=== PATIENT | female | born 1940 | race Caucasian/White ===

== ENCOUNTER 2017-05-04 15:50 | Observation (INO) | payer OTHER ==
[~2017-05-04] VITALS: Ht 149.9 cm; Wt 53.6 kg
[2017-05-04 17:29] VITALS: PULSE 80
[2017-05-04] MEDS ORDERED: PIOG15TA21 PO (17:37)
[2017-05-04] MEDS ORDERED: LABE100T3 PO (17:37)
[2017-05-04] MEDS ORDERED: APIX2.5T PO (17:37)
[2017-05-04] MEDS ORDERED: ATOR40TA68 PO (17:37)
[2017-05-04 17:39] VITALS: Ht 149.9 cm; Wt 53.6 kg
[2017-05-04 18:07] VITALS: BP 149/69; PULSE 85; RESP 18
[2017-05-04] MEDS ORDERED: NACL 0.9% 3 ML SYG IV SCH (19:30)
[2017-05-04] MEDS ORDERED: HYDROCODONE/APAP (5/325) TAB PO PRN (19:30)
[2017-05-04 19:33] LABS: BASOPHILS % 0.3 % (0.0-2.0); EOSINOPHILS # 0.1 10^3/ul (0.0-0.5); EOSINOPHILS % 1.2 % (0.0-7.0); HEMATOCRIT 34.5 % (37.0-47.0); HEMOGLOBIN 11.1 g/dl (12.0-16.0); LYMPHOCYTES # 1.6 10^3/ul (0.8-2.9); MEAN CORPUSCULAR HEMOGLOBIN 28.3 pg (29.0-33.0); MEAN CORPUSCULAR HGB CONC 32.2 g/dl (32.0-37.0); MEAN PLATELET VOLUME 9.6 fl (7.4-10.4); MONOCYTE # 0.4 10^3/ul (0.3-0.9); MONOCYTES % 6.4 % (0.0-11.0); NEUTROPHIL # 3.9 10^3/ul (1.6-7.5); NEUTROPHILS % 64.8 % (39.0-77.0); PLATELET COUNT 219 10^3/UL (140-415); RED BLOOD COUNT 3.92 10^6/ul (4.20-5.40); RED CELL DISTRIBUTION WIDTH 12.5 % (11.5-14.5)
--- NOTE | 2017-05-04 19:41 | HP ---
Date/Time of Note Date/Time of Note DATE: 05/04/17 TIME: 19:34 Assessment/Plan VTE Prophylaxis VTE Prophylaxis Intervention: other Lines/Catheters IV Catheter Type (from Nrs): Saline Lock Assessment/Plan Chief Complaint/Hosp Course This is a 77 year old female with a history of hypertension, paroxysmal atrial fibrillation, and diabetes II who presents with presyncope and hypertensive emergency Presyncope: - From patients description of the event it is almost certainly a vasovagal vs orthostatic presyncope precipitated by kneeling then standing rapidly, this is in the setting of beta joyce use - No further workup is required given normal EKG and negative troponin at [place] Hypertensive emergency: - Patient's BP has already gone from 220 to 140 this afternoon, so we will not give any more anthypertensives at this time - BP regimen can be slowly reinstated tomorrow - She is on labetalol 50 mg daily at home and had previously been on amlodipine and lisinopirl, but her doctor told her to stop these because of her creatinine PAUL: - Per [place], her creatinine was 0.8 a few months ago so it seems the 1.2 is an acute elevation - Hold meds for now, recheck and see baseline Paroxsymal Atrial Fibrillation: - Continue Eliquis DMII: - Continue Actos for now as sugars not elevated enough to warrant insulin at this time Hima can be discharged tomorrow if BP is reasonable and she is feeling ok Problems: HPI/ROS Admit Date/Time Admit Date/Time May 04, 2017 at 16:56 Hx of Present Illness 77 yo female with a history of hypertension, DMII, and paroxysmal atrial fibrillation She was transferred from [facility] for evaluation of presyncope and severe hypertension Patient in [facility] until today. She was in [facility] kneeling down. Then tried to stand and became very lightheaded and weak, felt that she would faint. Staff from the [facility] took her BP there and it was very elevated so she was brought to [place]. At [place], BP was 220s/80s. She complained of headache at this time. She was given numerous rounds of IV labetalol and hydralazine. BP came down to 170s systolic and here is down to 140s on arrival. Head CT there unremarkable. Labs notable for creatinine to 1.2 which is slightly elevated from her baseline. Currently feels well. A bit woozy with standing. PMH/Family/Social Past Medical History Medical History: hypertension Past Surgical History Past Surgical Hx: no surgical history Family History Significant Family History: no pertinent family hx Social History Alcohol Use: none Smoking Status: Never smoker Drug Use: none Exam/Review of Systems Vital Signs Vitals Vital Signs Date Time Temp Pulse Resp B/P Pulse Ox O2 Delivery O2 Flow Rate FiO2 05/04/17 18:07 98.6 85 18 149/69 100 Room Air Exam Constitutional: alert, oriented, well developed Psych: nl mood/affect, no complaints Head: atraumatic, normocephalic Eyes: EOMI, PERRL, nl conjunctiva, nl lids, nl sclera ENMT: nl external ears & nose, nl lips & teeth, nl nasal mucosa & septum Neck: non-tender, supple Respiratory: clear to auscultation, normal air movement Cardiovascular: nl pulses, regular rate and rhythm Gastrointestinal: nl liver, spleen, non-tender, soft Musculoskeletal: nl extremities to inspection Extremities: normal pulses Neurological: RN ALLERGY II-XII intact, nl mental status, nl speech, nl strength Skin: nl turgor, No rash or lesions Lymph: nl lymph nodes Medications Medications Current Medications Acetaminophen/ Hydrocodone Bitart (Jarrell (5/325)) 2 tab Q6H PRN PO SEVERE PAIN LEVEL 7-10; Start 05/04/17 at 19:30 Enoxaparin Sodium (Lovenox) 30 mg DAILY SC ; Start 05/05/17 at 09:00 LION LEI MD May 04, 2017 19:41
[2017-05-04 19:58] LABS: ALBUMIN 3.9 g/dl (3.3-4.9); ALBUMIN/GLOBULIN RATIO 1.11; BILIRUBIN,INDIRECT 0.4 mg/dl (0-1.1); BILIRUBIN,TOTAL 0.4 mg/dl (0.2-1.3); CALCIUM 9.5 mg/dl (8.4-10.2); CREATININE 0.97 mg/dl (0.44-1.00); POTASSIUM 4.6 mmol/L (3.5-5.1); TOTAL PROTEIN 7.4 g/dl (6.1-8.1)
[2017-05-04 20:16] VITALS: BP 175/79; RESP 19
[2017-05-04 20:19] VITALS: PULSE 77
[2017-05-04 20:54] VITALS: BP 161/71; PULSE 86; RESP 19
[2017-05-04] MEDS: APIXABAN 5 MG TABLET PO SCH (20:56)
[2017-05-04] MEDS: ATORVASTATIN 10 MG TAB PO SCH (20:56)
[2017-05-05] VITALS (12 sets, daily range): BP systolic 135–187; BP diastolic 64–90; PULSE 77–122; RESP 18–20
[2017-05-05 08:29] LABS: BASOPHILS % 0.5 % (0.0-2.0); EOSINOPHILS # 0.1 10^3/ul (0.0-0.5); EOSINOPHILS % 1.7 % (0.0-7.0); HEMATOCRIT 34.8 % (37.0-47.0); HEMOGLOBIN 11.1 g/dl (12.0-16.0); LYMPHOCYTES # 1.8 10^3/ul (0.8-2.9); LYMPHOCYTES % 27.7 % (15.0-51.0); MEAN CORPUSCULAR HEMOGLOBIN 27.9 pg (29.0-33.0); MEAN CORPUSCULAR HGB CONC 31.9 g/dl (32.0-37.0); MEAN CORPUSCULAR VOLUME 87.4 fl (82.0-101.0); MONOCYTE # 0.6 10^3/ul (0.3-0.9); MONOCYTES % 9.1 % (0.0-11.0); NEUTROPHIL # 3.9 10^3/ul (1.6-7.5); NEUTROPHILS % 60.7 % (39.0-77.0); PLATELET COUNT 226 10^3/UL (140-415); RED BLOOD COUNT 3.98 10^6/ul (4.20-5.40); RED CELL DISTRIBUTION WIDTH 12.6 % (11.5-14.5); WHITE BLOOD COUNT 6.4 10^3/ul (4.8-10.8)
[2017-05-05] MEDS: PIOGLITAZONE 15 MG TAB PO SCH (08:53)
[2017-05-05] MEDS: APIXABAN 5 MG TABLET PO SCH ×2 (08:54→21:11)
[2017-05-05] MEDS ORDERED: hydrALAzine 20 MG INJ IV PRN (09:00)
[2017-05-05] MEDS ORDERED: ENOXAPARIN 30 MG/0.3 ML SYG SC SCH (09:00)
[2017-05-05 09:18] LABS: ALBUMIN 3.7 g/dl (3.3-4.9); ALBUMIN/GLOBULIN RATIO 1.08; BILIRUBIN,INDIRECT 0.5 mg/dl (0-1.1); BILIRUBIN,TOTAL 0.5 mg/dl (0.2-1.3); CALCIUM 9.7 mg/dl (8.4-10.2); CREATININE 1.13 mg/dl (0.44-1.00); POTASSIUM 3.7 mmol/L (3.5-5.1); TOTAL PROTEIN 7.1 g/dl (6.1-8.1)
[2017-05-05] MEDS: AMLODIPINE 5 MG TAB PO SCH (12:35)
[2017-05-05] MEDS ORDERED: AMLO-145 PO (15:07)
--- NOTE | 2017-05-05 15:07 | PDOCDIS ---
Discharge Instructions CONDITION Patient Condition: Good HOME CARE INSTRUCTIONS: Diet Instructions: Regular ACTIVITY: Activity Restrictions: No Restrictions FOLLOW UP/APPOINTMENTS Follow-up Plan FOLLOW UP WITH YOUR PRIMARY CARE PHYSICIAN IN 1-2 WEEKS DANIS TAFOYA May 05, 2017 15:07
--- NOTE | 2017-05-05 15:16 | DS ---
Date/Time of Note Date/Time of Note DATE: 05/05/17 TIME: 15:08 Discharge Summary Admission/Discharge Info Admit Date/Time May 04, 2017 at 16:56 Discharge Date/Time May 05, 2017 Discharge Diagnosis 1. Presyncope secondary to labile BP with orthostatic hypotension - From patients description of the event it is almost certainly a vasovagal vs orthostatic presyncope precipitated by kneeling then standing rapidly, - No further workup is required given normal EKG and negative troponin at [place], patient also had recent heart cath that showed no significant disease and no CHF 2. Hypertensive emergency -Patient has had labile BP for many years, will continue home labetalol and will prescribe Norvasc 5 mg daily - She is on labetalol 50 mg daily at home and had previously been on amlodipine and lisinopril, lisinopril was held secondary to rising creatinine 3. PAUL-mild elevation - Per [place], her creatinine was 0.8 a few months ago so it seems the 1.2 is an acute elevation -Follow up with PCP 4. Paroxsymal Atrial Fibrillation: - Continue Eliquis 5. DMII: - Continue home meds Patient Condition: Good Hospital Course Patient is a 77 yo female with a history of hypertension, DMII, and paroxysmal atrial fibrillation. Patient was transferred from [facility] for evaluation of presyncope and severe hypertension. At [place], BP was 220s/ 80s. She complained of headache and was given numerous rounds of IV labetalol and hydralazine. CT head was unremarkable. Her pressures did improve, patient used to take Norvasc 5 mg daily and lisinopril but these medications were held secondary to a rising creatinine. Patient was resumed back on Norvasc 5 and BP did stabilize. Was felt that patient should continue her home labetalol will be given a new prescription for Norvasc 5 upon DC. The day of discharge patient 's vitals, labs physical exam are stable, she had no acute complaints and questions were answered. Patient does have good follow-up with her PCP. Home Meds Active Scripts Amlodipine Besylate* (Amlodipine Besylate*) 5 Mg Tablet, 5 MG PO DAILY, #60 TAB Prov:DANIS TAFOYA 05/05/17 Reported Medications Apixaban* (Eliquis*) 2.5 Mg Tablet, 2.5 MG PO BID, TAB 05/04/17 Labetalol Hcl* (Labetalol Hcl*) 100 Mg Tablet, 50 MG PO BID, TAB 05/04/17 Pioglitazone Hcl* (Pioglitazone Hcl*) 15 Mg Tablet, 15 MG PO DAILY, TAB 05/04/17 Atorvastatin* (Atorvastatin*) 40 Mg Tablet, 10 MG PO QHS, #30 TAB 05/04/17 Follow-up Plan FOLLOW UP WITH YOUR PRIMARY CARE PHYSICIAN IN 1-2 WEEKS Primary Care Provider [facility] Time spent on discharge: > 30 minutes DANIS TAFOYA May 05, 2017 15:16
[2017-05-05] MEDS ORDERED: morphine 2 MG INJ IV STA (16:27)
[2017-05-05] MEDS ORDERED: DILTIAZEM 25 MG INJ IV ONE (16:30)
--- NOTE | 2017-05-05 18:17 | RADRPT ---
Echocardiogram Report Patient Name: BRANDON KURTZ Gender: Female Date: 1940 Study Date: 05-May-2017 Grinder Hardboard: Shoaib Delgado [facility] Location: 55[address] Ref. Physician: DANIS TAFOYA Quality: Adequate Procedures: Transthoracic echocardiogram with complete 2D, M-Mode, and doppler examination. Indications: SVT. 2D/M Mode Doppler Measurement Value Normal Ranges Measurement Value Normal Ranges LVIDd 2D 2.6 3.5 - 5.6 cm AV Mean Claudio 1.6 m/sec LVIDs 2D 1.6 2.1 - 4.1 cm AV Mean PG 10.5 mmHg LVPWd 2D 1.4 0.6 - 1.1 cm AV Peak Claudio 1.9 m/sec IVSd 2D 1.5 0.6 - 1.1 cm AV Peak PG 14.2 mmHg AoR Diam 2D 2.4 2.0 - 3.7 cm AV VTI 32.8 cm EDV 2D 24.1 cm3 LVOT Peak Claudio 1.8 m/sec ESV 2D 4.0 cm3 LVOT Peak PG 12.8 mmHg LA Dimen 2D 3.2 2.3 - 4.0 cm TR Peak Claudio 2.8 m/sec TR Peak PG 30.4 mmHg RVSP 40.0 mmHg Findings Left Ventricle: Hyperdynamic left ventricular systolic function. Normal left ventricular cavity size. Moderate concentric left ventricular hypertrophy. Ejection fraction is visually estimated at 70 %. Right Ventricle: Normal right ventricular size. Hyperdynamic right ventricular systolic function. Left Atrium: The left atrium is normal in size. Right Atrium: The right atrium is normal in size. Mitral Valve: Mild mitral leaflet calcification. Mild mitral annular calcification. Trace mitral regurgitation. Aortic Valve: Normal appearance of the aortic valve. No significant aortic stenosis or insufficiency. Tricuspid Valve: Normal appearance of the tricuspid valve. Estimated peak PA systolic pressure 40 mmHg. There is mild tricuspid regurgitation. Pulmonic Valve: Pulmonic valve not well visualized. There is trace pulmonic regurgitation. Pericardium: There is an anterior echo free space consistent with epicardial fat pad. Aorta: Normal aortic root. IVC: Normal size and normal respiratory collapse consistent with normal right atrial pressure. Conclusions 1.Hyperdynamic left ventricular systolic function. Normal left ventricular cavity size. Moderate concentric left ventricular hypertrophy. Ejection fraction is visually estimated at 70 %. 2.The left atrium is normal in size. 3.Mild mitral leaflet calcification. Mild mitral annular calcification. Trace mitral regurgitation. 4.Normal appearance of the aortic valve. No significant aortic stenosis or insufficiency. 5.Normal appearance of the tricuspid valve. Estimated peak PA systolic pressure 40 mmHg. There is mild tricuspid regurgitation. Electronically Signed By: Darian Doherty 05-May-2017 18:16:33 -0800 Patient Name: BRANDON KURTZ Study Date: 05-May-2017 [id number]
--- NOTE | 2017-05-05 18:50 | CONS ---
Date/Time of Note Date/Time of Note DATE: 05/05/17 TIME: 18:44 Assessment/Plan Assessment/Plan Chief Complaint/Hosp Course 1. P-AFIB RVR 2. HTN 3. PRESYNCOPE 4. hx mild CAD: NO stenting needed per family report. Recommendations: I will start the patient on back on labetalol with increased dose of 200 mg p.o. twice daily. We will monitor in the telemetry overnight Echo was just done and reviewed personally Amlodipine will be continued with better blood pressure control Eliquis will be continued DC planning for tomorrow if remains stable Outpatient follow-up with her stone gluer Thank you for his referral. I will continue to follow along with you. ITALIA KEN MD [facility] Problems: Consultation Date/Type/Reason Admit Date/Time May 04, 2017 at 16:56 Date of Consultation: May 05, 2017 Type of Consultation: cardiology Reason for Consultation AFIB Referring Provider: DANIS QUEVEDO of Present Illness CC: presyncope HPI: Thank you for his referral. I will inform the patient discussion with her daughter review of the chart discussion with Dr. Quevedo. This is a pleasant 77-year-old [place] female with history of paroxysmal atrial fibrillation who is being followed by , who was transferred from [facility] after a presyncopal episode. Patient said that she was in the discharge med sheet kneeling down when she felt dizzy and lightheaded. Paramedics were called he was noted to be severely hypertensive patient was brought to the emergency room. Patient was transferred to [facility] from [facility] due to insurance reasons. Patient denies any chest pain or pressure. He denies any palpitations during this episode. Today however she was noted to go into atrial fibrillation with rapid ventricular response and during that time she also felt palpitation. Patient is already on Eliquis and said that she has had atrial fibrillation before has been followed by Dr Mathias. These episodes are usually rare though. She denies any bleeding to me. She has not been drinking much lately. According to the patient and her daughter patient blood pressure has always been "very high". meds reviewed social HX; Non smoker. Family history: Patient's father with coronary artery disease PMH HTN PAFIB Surgical history: Patient reports that he has had an angiogram done about a year ago in which hospital. At that time no stenting was needed ROS; as ABOVE ONLY Psychological: nl mood/affect, no complaints Past Medical History Medical History: hypertension Past Surgical History Past Surgical Hx: no surgical history Social History Alcohol Use: none Smoking Status: Never smoker Drug Use: none Exam/Review of Systems Vital Signs Vitals Vital Signs Date Time Temp Pulse Resp B/P Pulse Ox O2 Delivery O2 Flow Rate FiO2 05/05/17 16:00 122 05/05/17 15:41 98.6 18 135/64 99 05/04/17 20:54 Room Air Intake and Output 05/04/17 05/04/17 05/05/17 15:00 23:00 07:00 Intake Total 360 ml Balance 360 ml Exam General: no acute distress HEENT: NC/AT. pupils are equal. round. NECK: NO JVD. no stridor. CV: RRR. systolic murmur; no gallop or rubs. PULM: no wheezing or rhonchi. GI: SOFT, NT, ND, no rebound or guarding Extremity: trace B/L LE edema. no clubbing. neuro: awake and alert, OX3. Psych: calm and pleasant rectal: deferred ECG NSR ECHO REVIEWED. Results Result Diagram: 05/05/17 0741 05/05/17 0741 Results 24 hrs Laboratory Tests Test 05/04/17 19:23 05/05/17 07:41 White Blood Count 6.0 6.4 Red Blood Count 3.92 L 3.98 L Hemoglobin 11.1 L 11.1 L Hematocrit 34.5 L 34.8 L Mean Corpuscular Volume 88.0 87.4 Mean Corpuscular Hemoglobin 28.3 L 27.9 L Mean Corpuscular Hemoglobin Concent 32.2 31.9 L Red Cell Distribution Width 12.5 12.6 Platelet Count 219 226 Mean Platelet Volume 9.6 10.0 Neutrophils % 64.8 60.7 Lymphocytes % 27.0 27.7 Monocytes % 6.4 9.1 Eosinophils % 1.2 1.7 Basophils % 0.3 0.5 Nucleated Red Blood Cells % 0.0 0.0 Neutrophils # 3.9 3.9 Lymphocytes # 1.6 1.8 Monocytes # 0.4 0.6 Eosinophils # 0.1 0.1 Basophils # 0.0 0.0 Nucleated Red Blood Cells # 0.0 0.0 Sodium Level 141 143 Potassium Level 4.6 3.7 Chloride Level 107 108 Carbon Dioxide Level 26 27 Anion Gap 13 12 Blood Urea Nitrogen 15 16 Creatinine 0.97 1.13 H Glucose Level 101 94 Calcium Level 9.5 9.7 Total Bilirubin 0.4 0.5 Direct Bilirubin 0.00 0.00 Indirect Bilirubin 0.4 0.5 Aspartate Amino Transf (AST/SGOT) 26 23 Alanine Aminotransferase (ALT/SGPT) 26 25 Alkaline Phosphatase 63 65 Total Protein 7.4 7.1 Albumin 3.9 3.7 Globulin 3.50 H 3.40 H Albumin/Globulin Ratio 1.11 1.08 Medications Medications Current Medications Acetaminophen/ Hydrocodone Bitart (Morrison (5/325)) 2 tab Q6H PRN PO SEVERE PAIN LEVEL 7-10; Start 05/04/17 at 19:30 Apixaban (Eliquis) 2.5 mg BID PO Last administered on 05/05/17 08:54; Admin Dose 2.5 MG; Start 05/04/17 at 21:00 Atorvastatin Calcium (Lipitor) 10 mg QHS PO Last administered on 05/04/17 20: 56; Admin Dose 10 MG; Start 05/04/17 at 21:00 Pioglitazone HCl (Actos) 15 mg DAILY PO Last administered on 05/05/17 08:53; Admin Dose 15 MG; Start 05/05/17 at 09:00 Hydralazine HCl (Apresoline) 10 mg Q6H PRN IV For SBP above 160 Last administered on 05/05/17 08:54; Admin Dose 10 MG; Start 05/05/17 at 09:00 Amlodipine Besylate (Norvasc) 5 mg DAILY PO Last administered on 05/05/17 12: 35; Admin Dose 5 MG; Start 05/05/17 at 12:00 ITALIA KEN MD May 05, 2017 18:50
[2017-05-05] MEDS ORDERED: POTASSIUM CHLORIDE (SR) 8 MEQ CAP PO ONE (20:00)
[2017-05-05] MEDS: ATORVASTATIN 10 MG TAB PO SCH (21:12)
[2017-05-05] MEDS: LABETALOL 200 MG TAB PO SCH (21:13)
[2017-05-06] VITALS: PULSE 75
[2017-05-06 01:52] VITALS: BP 145/74; RESP 16
[2017-05-06 04:00] VITALS: PULSE 72
[2017-05-06 04:49] VITALS: BP 117/61; RESP 16
[2017-05-06 08:11] VITALS: PULSE 74
[2017-05-06] MEDS: APIXABAN 5 MG TABLET PO SCH (08:29)
[2017-05-06] MEDS: PIOGLITAZONE 15 MG TAB PO SCH (08:29)
[2017-05-06] MEDS: AMLODIPINE 5 MG TAB PO SCH (08:29)
[2017-05-06] MEDS: LABETALOL 200 MG TAB PO SCH (08:29)
[2017-05-06 09:49] LABS: BASOPHILS % 0.4 % (0.0-2.0); EOSINOPHILS # 0.1 10^3/ul (0.0-0.5); HEMATOCRIT 32.8 % (37.0-47.0); HEMOGLOBIN 10.5 g/dl (12.0-16.0); LYMPHOCYTES # 1.9 10^3/ul (0.8-2.9); LYMPHOCYTES % 34.5 % (15.0-51.0); MEAN CORPUSCULAR HEMOGLOBIN 28.1 pg (29.0-33.0); MEAN CORPUSCULAR VOLUME 87.7 fl (82.0-101.0); MEAN PLATELET VOLUME 9.8 fl (7.4-10.4); MONOCYTE # 0.4 10^3/ul (0.3-0.9); MONOCYTES % 7.9 % (0.0-11.0); NEUTROPHIL # 3.1 10^3/ul (1.6-7.5); PLATELET COUNT 222 10^3/UL (140-415); RED BLOOD COUNT 3.74 10^6/ul (4.20-5.40); RED CELL DISTRIBUTION WIDTH 12.6 % (11.5-14.5); WHITE BLOOD COUNT 5.6 10^3/ul (4.8-10.8)
[2017-05-06 10:22] LABS: ALBUMIN 3.6 g/dl (3.3-4.9); ALBUMIN/GLOBULIN RATIO 1.09; BILIRUBIN,INDIRECT 0.5 mg/dl (0-1.1); BILIRUBIN,TOTAL 0.5 mg/dl (0.2-1.3); CALCIUM 9.4 mg/dl (8.4-10.2); CREATININE 1.13 mg/dl (0.44-1.00); MAGNESIUM 1.7 mg/dl (1.7-2.5); POTASSIUM 3.7 mmol/L (3.5-5.1); TOTAL PROTEIN 6.9 g/dl (6.1-8.1)
[2017-05-06] MEDS ORDERED: LABE200T25 PO (10:48)
[2017-05-06 12:44] VITALS: BP 106/57; PULSE 74; RESP 18
--- NOTE | 2017-05-07 18:16 | DS ---
Date/Time of Note Date/Time of Note DATE: 05/07/17 TIME: 18:11 Discharge Summary Admission/Discharge Info Admit Date/Time May 04, 2017 at 16:56 Discharge Date/Time May 06, 2017 at 12:43 Discharge Diagnosis 1. Presyncope secondary to labile BP with orthostatic hypotension - From patients description of the event it is almost certainly a vasovagal vs orthostatic presyncope precipitated by kneeling then standing rapidly, - No further workup is required given normal EKG and negative troponin at [place], patient also had recent heart cath that showed no significant disease and no CHF 2. Hypertensive emergency -Patient has had labile BP for many years -Patient discharged with labetalol 200 twice daily as well as Norvasc 5 mg daily - She is on labetalol 50 mg daily at home which she is to discontinue and had previously been on amlodipine and lisinopril, lisinopril was held secondary to rising creatinine 3. PAUL-mild elevation - Per [place], her creatinine was 0.8 a few months ago so it seems the 1.2 is an acute elevation -Follow up with PCP 4. Paroxsymal Atrial Fibrillation: - Continue Eliquis -Patient did have an episode of tachycardia which resolved -Cardiology consultation appreciated recommendation is to increase labetalol to 200 twice daily 5. DMII: - Continue home meds Patient Condition: Good Hospital Course Patient is a 77 yo female with a history of hypertension, DMII, and paroxysmal atrial fibrillation. Patient was transferred from [facility] for evaluation of presyncope and severe hypertension. At [place], BP was 220s/ 80s. She complained of headache and was given numerous rounds of IV labetalol and hydralazine. CT head was unremarkable. Her pressures did improve, patient used to take Norvasc 5 mg daily and lisinopril but these medications were held secondary to a rising creatinine. Patient was resumed back on Norvasc 5 and BP did stabilize. Patient did have an episode of A. fib with RVR prior to being discharge and discharge was held, patient was seen by cardiology and labetalol was increased to 200 mg twice daily. Following day patient's blood pressure and heart rate were stable and was felt that patient should be discharged with labetalol 200 mg twice daily and she is to stop her home labetalol 50 mg twice daily, patient also discharged with Norvasc 5 milligrams. On the day of discharge patient's vitals, labs physical exam are stable, she had no acute complaints and questions were answered. Patient does have good follow-up with her PCP. Home Meds Active Scripts Labetalol Hcl* (Labetalol Hcl*) 200 Mg Tablet, 200 MG PO BID, #60 TAB Prov:DANIS TAFOYA 05/06/17 Amlodipine Besylate* (Amlodipine Besylate*) 5 Mg Tablet, 5 MG PO DAILY, #60 TAB Prov:DANIS TAFOYA 05/05/17 Reported Medications Apixaban* (Eliquis*) 2.5 Mg Tablet, 2.5 MG PO BID, TAB 05/04/17 Pioglitazone Hcl* (Pioglitazone Hcl*) 15 Mg Tablet, 15 MG PO DAILY, TAB 05/04/17 Atorvastatin* (Atorvastatin*) 40 Mg Tablet, 10 MG PO QHS, #30 TAB 05/04/17 Follow-up Plan FOLLOW UP WITH YOUR PRIMARY CARE PHYSICIAN IN 1-2 WEEKS Primary Care Provider [facility] Time spent on discharge: > 30 minutes DANIS TAFOYA May 07, 2017 18:16
== END 2017-05-06 12:43 | disposition home or self-care (01) ==
LOC: INTOOBSV 16:56 → MS4 16:56
PROVIDERS: ADMIT Internal Medicine; ATTEND Internal Medicine
DX: R55 Syncope and collapse (principal); I10 Essential (primary) hypertension; N17.9 Acute kidney failure, unspecified; E11.9 Type 2 diabetes mellitus without complications; Z79.84 Long term (current) use of oral hypoglycemic drugs; I48.0 Paroxysmal atrial fibrillation; Z79.01 Long term (current) use of anticoagulants
CPT/HCPCS: 80053; 83735; 85025; 93005; 93306; J0360; J2270; Z7500; Z7610; G0378

== ENCOUNTER 2018-09-11 13:36 | Day surgery (SDC) | payer OTHER ==
[~2018-09-11] VITALS: Ht 139.7 cm; Wt 55.4 kg
[2018-09-11] VITALS (18 sets, daily range): BP systolic 85–171; BP diastolic 53–78; PULSE 78–118; RESP 16–29; Ht 139.7 cm; Wt 55.4 kg
[~2018-09-11 13:36] MED LIST: AMLO-145 PO; APIX2.5T PO; ATOR40TA68 PO; LABE200T25 PO; PIOG15TA67 PO
[2018-09-11] MEDS ORDERED: FENTAnyl 50 MCG/ML VIAL ONE (16:10)
[2018-09-11] MEDS ORDERED: HEPARIN 1000 UNITS/NS (A-LINE) 1,000 ML ONE (16:10)
[2018-09-11] MEDS ORDERED: LIDOCAINE 1% (MDV) 20 ML INJ ONE (16:10)
[2018-09-11] MEDS ORDERED: MIDAZOLAM 1 MG/ML 2 ML INJ ONE (16:10)
[2018-09-11] MEDS ORDERED: IODIXANOL LOCM 100 ML BTL ONE (16:10)
[2018-09-11] MEDS ORDERED: HEPARIN 1000 UNITS/ML 10 ML INJ ONE (16:11)
[2018-09-11] MEDS ORDERED: VERAPAMIL 5 MG INJ ONE (16:12)
[2018-09-11] MEDS ORDERED: NITROGLYCERIN (IC) 100 MCG/ML INJ ONE (16:12)
[2018-09-11] MEDS ORDERED: SOD CHLORIDE 0.9% 1,000 ML IV SCH (16:58)
--- NOTE | 2018-09-11 17:59 | OPR ---
Date/Time of Note Date/Time of Note DATE: 09/11/18 TIME: 17:57 Operative Report Procedure Date: Sep 11, 2018 Preoperative Diagnosis Chest pain Postoperative Diagnosis No significant coronary artery disease Operation/Procedure Performed left heart catheterization Surgeon see signature line Barrel Raiser none Anesthesia Type: moderate sedation Estimated Blood Loss: minimal Transfusion none Specimen none Grafts/Implants none Complications none Pt Condition Post Procedure: stable Disposition: PACU Procedure Description DESCRIPTION OF PROCEDURE: The patient placed on color television console monitor, pulse oximetry and supplemental oxygen as necessary. The right wrist was prepped and draped in a sterile fashion and infiltrated with 1% lidocaine. Via the Seldinger technique, the right radial artery was accessed. A 5-Persian sheath was inserted and through this the right coronary catheter and left coronary catheter and pigtail were advanced into the right coronary artery and left coronary artery and the left ventricle. Placement confirmed by fluoroscopy and hemodynamics. CATHETERIZATION FINDINGS: 1. Left main: No significant disease. 2. LAD: Large caliber vessel with no significant disease. 3. Circumflex: Medium caliber vessel with no significant disease. 4. Obtuse marginal: Medium caliber vessel with no significant disease. 5. RCA: Large dominant vessel with no significant disease HEMODYNAMICS: LVEDP 10mmHg. No significant aortic valve gradient on pigtail pullback. COMPLICATIONS: None. FINAL RESULTS: No significant coronary artery disease RECOMMENDATIONS: Medical management. TOMER RIVAS Sep 11, 2018 17:59
== END 2018-09-11 18:57 | disposition home or self-care (01) ==
LOC: CCL 13:36 → SDS 13:36 → CCL 18:57
PROVIDERS: ATTEND Internal Medicine
DX: R07.9 Chest pain, unspecified (principal); R06.02 Shortness of breath; I48.91 Unspecified atrial fibrillation
CPT/HCPCS: 80048; 82962; 85025; 85610; 93458; C1887; J1644; J2250; J3010; Q9967; Z7610

== ENCOUNTER 2018-11-19 21:12 | Emergency (ER) | payer OTHER ==
[~2018-11-19] VITALS: Ht 147.3 cm; Wt 56.9 kg
[2018-11-19 21:44] VITALS: Ht 147.3 cm; Wt 56.9 kg
[2018-11-19] MEDS ORDERED: CEFTRIAXONE 1 GM/50 ML (PMX) 50 ML IVPB STA (23:37)
[2018-11-19] MEDS ORDERED: AZITHROMYCIN 500MG/NS (PMX) 250 ML IV STA (23:37)
[2018-11-19] MEDS ORDERED: SODIUM CHLORIDE 0.9% 1L BAG IV* STA (23:37)
[2018-11-20] MEDS ORDERED: ALBUTEROL 0.083% (NEB) 2.5 MG/3 ML AMP INH ONE
[2018-11-20] MEDS ORDERED: IPRATROPIUM (NEB) 0.5 MG/2.5 ML AMP INH ONE
[2018-11-20] MEDS ORDERED: AZIT250T PO (01:29)
[2018-11-20] MEDS ORDERED: AMOX500C2 PO (01:29)
[2018-11-20] MEDS ORDERED: ALBU18HF INHALATION (01:29)
--- NOTE | 2018-11-20 01:34 | ERD ---
ER Documentation Chief Complaint Chief Complaint sore throat, fever/body aches/cough x 2 days HPI This is a 78-year-old female who presents to the emergency room complaining of sore throat, fever cough body aches for approximately 2 days. Cough is slightly productive. No significant shortness of breath. No chest pain, no pleuritic pain. No recent travel sick contacts or antibiotics. Symptoms are moderate. ROS All systems reviewed and are negative except as per history of present illness. Medications Home Meds Active Scripts Amoxicillin* (Amoxicillin*) 500 Mg Cap, 1000 MG PO TID for 7 Days, CAP Prov:MASON PRATT MD 11/20/18 Azithromycin* (Zithromax*) 250 Mg Tablet, 250 MG PO DAILY for 4 Days, TAB Prov:MASON PRATT MD 11/20/18 Albuterol Sulfate* (Ventolin HFA*) 18 Gm Hfa.aer.ad, 2 PUFF INHALATION Q4H, #1 INHALER Prov:MASON PRATT MD 11/20/18 Labetalol Hcl* (Labetalol Hcl*) 200 Mg Tablet, 200 MG PO BID, #60 TAB Prov:DANIS TAFOYA 05/06/17 Amlodipine Besylate* (Amlodipine Besylate*) 5 Mg Tablet, 5 MG PO DAILY, #60 TAB Prov:DANIS TAFOYA 05/05/17 Reported Medications Apixaban* (Eliquis*) 2.5 Mg Tablet, 2.5 MG PO BID, TAB 05/04/17 Pioglitazone Hcl* (Pioglitazone Hcl*) 15 Mg Tablet, 15 MG PO DAILY, TAB 05/04/17 Atorvastatin* (Atorvastatin*) 40 Mg Tablet, 10 MG PO QHS, #30 TAB 05/04/17 Allergies Allergies: Coded Allergies: No Known Allergy (Unverified , 05/06/17) PMhx/Soc Medical and Surgical Hx: pt denies Medical Hx, pt denies Surgical Hx History of Surgery: No Anesthesia Reaction: No Hx Neurological Disorder: No Hx Respiratory Disorders: No Hx Cardiac Disorders: Yes (HTN, AFIB, CHEST PAIN) Hx Psychiatric Problems: No Hx Miscellaneous Medical Probl: No Hx Alcohol Use: No Hx Substance Use: No Hx Tobacco Use: No Smoking Status: Never smoker FmHx Family History: No diabetes Physical Exam Vitals Vital Signs Date Temp Pulse Resp B/P (MAP) Pulse Ox O2 O2 Flow FiO2 Time Delivery Rate 11/20/18 99.1 72 20 151/82 97 Room Air 00:08 (105) 11/19/18 87 18 97 21 23:51 11/19/18 Nasal 23:48 Cannula 11/19/18 99.1 100 20 147/76 98 21:44 (99) Physical Exam General: Well developed, well nourished, no acute distress Head: Normocephalic, atraumatic. Eyes: Pupils equally reactive, EOM intact ENT: Moist mucous membranes Neck: Supple, no lymphadenopathy Respiratory: Slight rhonchi at the right base, no distress Cardiovascular: RRR, no murmurs, rubs, or gallops Abdominal: Soft, non-tender, non-distended, no peritoneal signs : Deferred MSK: No edema, no unilateral swelling, 5/5 strength Neurologic: Alert and oriented, moving all extremities, normal speech, no focal weakness, no cerebellar signs Skin: No rash Psych: Normal mood Result Diagram: 11/20/18 0001 11/20/18 0001 Results 24 hrs Laboratory Tests Test 11/20/18 00:01 11/20/18 00:06 White Blood Count 14.1 10^3/ul Red Blood Count 4.45 10^6/ul Hemoglobin 12.3 g/dl Hematocrit 38.0 % Mean Corpuscular Volume 85.4 fl Mean Corpuscular Hemoglobin 27.6 pg Mean Corpuscular Hemoglobin Concent 32.4 g/dl Red Cell Distribution Width 12.6 % Platelet Count 229 10^3/UL Mean Platelet Volume 9.3 fl Immature Granulocytes % 0.400 % Neutrophils % 70.0 % Lymphocytes % 17.9 % Monocytes % 9.2 % Eosinophils % 2.1 % Basophils % 0.4 % Nucleated Red Blood Cells % 0.0 /100WBC Immature Granulocytes # 0.060 10^3/ul Neutrophils # 9.9 10^3/ul Lymphocytes # 2.5 10^3/ul Monocytes # 1.3 10^3/ul Eosinophils # 0.3 10^3/ul Basophils # 0.1 10^3/ul Nucleated Red Blood Cells # 0.0 10^3/ul Sodium Level 137 mmol/L Potassium Level 4.0 mmol/L Chloride Level 98 mmol/L Carbon Dioxide Level 27 mmol/L Anion Gap 12 Blood Urea Nitrogen 22 mg/dl Creatinine 1.27 mg/dl Est Glomerular Filtrat Rate mL/min mL/min Glucose Level 108 mg/dl Calcium Level 9.3 mg/dl POC Venous Lactate 1.5 mmol/L Current Medications Medications Dose Sig/Alice Start Time Status Last (Trade) Ordered Route PRN Stop Time Admin Dose Reason Admin Sodium 1,710 ml BOLUS OVER 2 11/19/18 DC 11/20/18 Chloride HOURS STAT 23:37 11/19/18 00:15 (NS) IV* 23:40 Albuterol 2.5 mg ONCE ONCE 11/20/18 DC 11/19/18 (Proventil INH 00:00 11/20/18 23:50 0.083% (Neb)) 00:01 Ipratropium 0.5 mg ONCE ONCE 11/20/18 DC 11/19/18 [place] [facility] 00:00 11/20/18 23:50 (Atrovent 00:01 0.02% (Neb)) Azithromycin 250 ml @ ONCE STAT 11/19/18 DC 11/19/18 250 mls/hr IV 23:37 11/20/18 01:09 00:36 Ceftriaxone 50 ml @ ONCE STAT 11/19/18 DC 11/20/18 Sodium 100 mls/hr IVPB 23:37 11/20/18 00:15 00:06 Procedures/MDM EKG, MONITORS, & DIAGNOSTIC IMAGING: Chest x-ray: I reviewed and interpreted a 1 view of the chest Mediastinum: No enlargement Cardiac silhouette: No cardiomegaly Airspace: Clear lung coleman bilaterally without evidence of pneumothorax Bones: No evidence of fracture LAB INTERPRETATION: I reviewed the laboratory testing and it shows slight leukocytosis MEDICAL DECISION MAKING: Patient presents with fever cough congestion. Clinical exam consistent with likely community acquired pneumonia. No signs or symptoms concerning for ACS or pulmonary embolism. Patient is otherwise well-appearing in the emergency room setting but given age I do believe that laboratory testing and sepsis screening would be appropriate. ER COURSE: * Patient given a breathing treatment. IV fluids. Broad-spectrum antibiotics in the form of ceftriaxone and azithromycin. * On reassessment the patient is feeling much better. Lactic acid was normal. The patient has a curb 65 score of 2 placing her at moderate risk group. I discussed and offered inpatient hospitalization. However, the patient and family member feel very strongly about going home. We discussed the risk benefits and alternatives and I believe with close outpatient follow-up this would be reasonable. * Return precautions were discussed and understood. CONSULTATION: None DISPOSITION PLAN: The patient does not have an identifiable emergent medical condition that warrants inpatient hospitalization at this time. The patient is deemed safe for discharge with outpatient follow-up. We discussed follow up with the patient's primary care doctor within 24 to 48 hours as needed. We also discussed return to the emergency room for worsening symptoms or worsening condition. Outpatient referral: None required Discharge Medications: Ventolin, amoxicillin, azithromycin Departure Diagnosis: Primary Impression: Community acquired pneumonia Laterality: right Lung location: lower lobe of lung Qualified Codes: J1 8.1 - Lobar pneumonia, unspecified organism Additional Impression: Acute renal insufficiency Condition: Stable Patient Instructions: Pneumonia (Adult) Additional Instructions: Call your primary care doctor TOMORROW for an appointment during the next 2-3 days.See the doctor sooner or return here if your condition worsens before your appointment time. MASON PRATT MD Nov 20, 2018 01:34
[2018-11-20 02:15] VITALS: BP 148/81; PULSE 80; RESP 20
== END 2018-11-20 02:43 | disposition home or self-care (01) ==
LOC: FTE 21:12 → E/R 11-20 02:43
DX: J18.1 Lobar pneumonia, unspecified organism (principal); I10 Essential (primary) hypertension; N28.9 Disorder of kidney and ureter, unspecified; Z79.01 Long term (current) use of anticoagulants
CPT/HCPCS: 36415; 71045; 80048; 83605; 85025; 87040; 94664; 96365; 96375; J0456; J0696; J7030; Z7502; Z7610